=== PATIENT | male | born 1985 | race Native Hawaiian/Other Pacific Islander ===

== ENCOUNTER 2017-04-20 05:31 | Emergency (ER) | payer SELFPAY ==
[2017-04-20 05:56] VITALS: BP 150/103
[2017-04-20 06:20] LABS: Basophils % (Auto) 0.7 % (0.0-1.8); Eosinophils % (Auto) 1.9 % (0.0-4.3); Hematocrit 41.3 % (35.5-45.6); Hemoglobin 13.9 gm/dl (11.8-15.2); Mean Corpuscular HGB Conc 34 % (32-34); Mean Corpuscular Hemoglobin 30 pg (28-32); Mean Corpuscular Volume 89 fl (84-94); Platelet Count 162 K/mm3 (140-440); Red Blood Count 4.67 M/mm3 (3.65-5.03); White Blood Count 6.1 K/mm3 (4.5-11.0)
[2017-04-20 06:37] LABS: Alanine Aminotransferase 19 units/L (7-56); Albumin/Globulin Ratio 1.4 %; Alkaline Phosphatase 93 units/L (35-129); Anion Gap 18 mmol/L; BUN/Creatinine Ratio 18.33; Blood Urea Nitrogen 11 mg/dL (9-20); Calcium 8.7 mg/dL (8.4-10.2); Carbon Dioxide 23 mmol/L (22-30); Chloride 102.3 mmol/L (98-107); Glucose 114 mg/dL (75-100); Lipase 58 units/L (13-60); Potassium 3.5 mmol/L (3.6-5.0); Sodium 140 mmol/L (137-145); Total Protein 6.9 g/dL (6.3-8.2)
[2017-04-20 10:15] LABS: Bilirubin,Urine NEG (Negative); Blood,Urine NEG (Negative); Ketones,Urine NEG (Negative); Leukocyte Esterase,Urine NEG (Negative); Mucus,Urine FEW /HPF; Nitrite,Urine NEG (Negative); Protein,Urine <15 mg/dL mg/dL (Negative); Urobilinogen,Urine < 2.0 mg/dL (<2.0)
[2017-04-20 10:20] LABS: RBC,Urine < 1.0 /HPF (0.0-6.0)
--- NOTE | 2017-04-23 14:07 | ED Elopement Review ---
ED Pt Elopement review - Results review Lab results: Laboratory Tests 04/20/17 04/20/17 04/20/17 06:04 06:04 10:02 WBC 6.1 RBC 4.67 Hgb 13.9 Hct 41.3 MCV 89 MCH 30 MCHC 34 RDW 13.0 L Plt Count 162 Lymph % (Auto) 29.8 [place] % (Auto) 6.9 Eos % (Auto) 1.9 Baso % (Auto) 0.7 Lymph # 1.8 [place] # 0.4 Eos # 0.1 Baso # 0.0 Seg Neutrophils % 60.7 Seg Neutrophils # 3.7 Sodium 140 Potassium 3.5 L Chloride 102.3 Carbon Dioxide 23 Anion Gap 18 BUN 11 Creatinine 0.6 L Estimated GFR > 60 BUN/Creatinine Ratio 18.33 Glucose 114 H Calcium 8.7 Total Bilirubin 0.30 AST 17 ALT 19 Alkaline Phosphatase 93 Total Protein 6.9 Albumin 4.0 Albumin/Globulin Ratio 1.4 Lipase 58 Urine Color Yellow Urine Turbidity Clear Urine pH 7.0 Ur Specific Van 1.010 Urine Protein <15 mg/dl Urine Glucose (UA) Neg Urine Ketones Neg Urine Blood Neg Urine Nitrite Neg Urine Bilirubin Neg Urine Urobilinogen < 2.0 Ur Leukocyte Esterase Neg Urine WBC (Auto) 1.0 Urine RBC (Auto) < 1.0 U Epithel Cells (Auto) < 1.0 Amorphous Crystals Few Urine Mucus Few - Call Back decision Pt Call Back Decision: No action required
== END 2017-04-20 15:30 | disposition left against medical advice (07) ==
LOC: ED 05:31
DX: R52 Pain, unspecified (principal); Z53.21 Procedure and treatment not carried out due to patient leaving prior to being seen by health care provider
CPT/HCPCS: 36415; 80053; 81001; 83690; 85025